=== PATIENT | female | born 1990 | race African-American/Black ===

== ENCOUNTER 2021-02-16 09:40 | Emergency (ER) | payer MEDICAID ==
[~2021-02-16] VITALS: Ht 162.6 cm; Wt 81.8 kg
[2021-02-16 09:48] VITALS: BP 127/90; TEMP 98.2
[2021-02-16 10:29] LABS: STREP SCREEN POSITIVE
[2021-02-16] MEDS ORDERED: AMOXICILLIN 8751 TAB PO (11:02)
[2021-02-16 11:14] VITALS: PULSE 97
== END 2021-02-16 11:15 | disposition home or self-care (01) ==
LOC: COL.ER 09:40 → EDBD 11:15 → COL.ER 11:15
PROVIDERS: Nurse Practitioner Family
DX: J02.0 Streptococcal pharyngitis (principal)

== ENCOUNTER 2021-05-30 20:52 | Emergency (ER) | payer MEDICAID ==
[~2021-05-30] VITALS: Ht 162.6 cm; Wt 81.8 kg
[~2021-05-30 20:52] MED LIST: AMOXICILLIN 8751 TAB PO
[2021-05-30 23:39] LABS: BASO % 0.3 % (0.0-2.0); EOS # 0.1 (0.0-0.7); EOS % 1.3 % (0-4.0); GRAN # 5.8 (1.4-6.5); GRAN % 63.5 % (42.2-75.2); HEMATOCRIT 38.2 % (37.0-47.0); HEMOGLOBIN 13.2 g/dl (12.5-16.0); LYMPH # 2.4 (1.2-3.4); LYMPH % 25.7 % (20.0-51.0); MEAN CELL VOLUME 85 fl (80.0-100.0); MEAN CORPUSCULAR HEMOGLOBIN 29 pg (27.0-31.0); MEAN CORPUSCULAR HGB CONC 35 g/dl (33.0-37.0); MONO # 0.8 (0.1-0.6); MONO % 8.8 % (1.7-9.3); PLATELET COUNT 192 K/mm3 (130-400); RED BLOOD COUNT 4.49 M/mm3 (4.10-5.30); REDCELL DISTRIBUTION WIDTH-CV 12.2 % (11.5-14.5)
[2021-05-30 23:54] LABS: ALBUMIN 4.5 gm/dL (3.5-5.0); BILIRUBIN,TOTAL 0.4 mg/dL (0.0-1.0); CALCIUM 9.6 mg/dL (8.4-10.2); CREATININE, serum 0.68 (0.52-1.25); POTASSIUM 3.5 mmol/L (3.4-5.0); TOTAL PROTEIN 8.1 gm/dL (6.4-8.2)
[2021-05-31] MEDS ORDERED: PHENERGAN 25 TA25 MG PO (01:02)
[2021-05-31 01:50] VITALS: BP 121/64; PULSE 72; TEMP 98.1
== END 2021-05-31 01:50 | disposition home or self-care (01) ==
LOC: COL.ER 20:52 → EDBD 20:56 → COL.ER 20:56
PROVIDERS: Emergency Medicine
DX: O21.9 Vomiting of pregnancy, unspecified (principal); O99.519 Diseases of the respiratory system complicating pregnancy, unspecified trimester; J02.0 Streptococcal pharyngitis; Z3A.00 Weeks of gestation of pregnancy not specified
CPT/HCPCS: J2405; J2550; J7030